=== PATIENT | male | born 1970 | race Caucasian/White ===

== ENCOUNTER 2018-05-23 17:07 | Emergency (ER) | payer SELFPAY ==
[~2018-05-23] VITALS: Ht 167.6 cm; Wt 118.2 kg
[2018-05-23] MEDS ORDERED: CLEOCIN300 MG PO (18:52)
[2018-05-23 19:00] VITALS: BP 162/92
== END 2018-05-23 19:00 | disposition home or self-care (01) | DRG 605 ==
LOC: ED 17:07
PROC: 0HQFXZZ Repair Right Hand Skin, External Approach (ICD-10-PCS; principal; 2018-05-23)
PROC: 0HQGXZZ Repair Left Hand Skin, External Approach (ICD-10-PCS; 2018-05-23)
PROC: 2W3JX1Z Immobilization of Right Finger using Splint (ICD-10-PCS; 2018-05-23)
DX: S61.012A Laceration without foreign body of left thumb without damage to nail, initial encounter (principal); S61.011A Laceration without foreign body of right thumb without damage to nail, initial encounter; S62.511A Displaced fracture of proximal phalanx of right thumb, initial encounter for closed fracture; W23.1XXA Caught, crushed, jammed, or pinched between stationary objects, initial encounter; Y93.89 Activity, other specified; Y92.29 Other specified public building as the place of occurrence of the external cause